=== PATIENT | male | born 1970 | race African-American/Black ===

== ENCOUNTER 2017-05-08 05:07 | Emergency (ER) | payer OTHER ==
[~2017-05-08] VITALS: Ht 185.4 cm; Wt 150.0 kg
[2017-05-08] MEDS ORDERED: ONDANSETRON 4MG ODT PO ONE (08:30)
[2017-05-08] MEDS ORDERED: TRAMADOL 50MG TABLET PO ONE (08:30)
[2017-05-08] MEDS ORDERED: FAMOTIDINE 20MG TABLET PO ONE (08:30)
[2017-05-08 08:38] VITALS: BP 143/95
== END 2017-05-08 08:49 | disposition home or self-care (01) ==
LOC: ER 05:36
DX: T62.91XA Toxic effect of unspecified noxious substance eaten as food, accidental (unintentional), initial encounter (principal); E66.9 Obesity, unspecified; F17.210 Nicotine dependence, cigarettes, uncomplicated; Z68.41 Body mass index [BMI] 40.0-44.9, adult; Z88.0 Allergy status to penicillin; Y92.018 Other place in single-family (private) house as the place of occurrence of the external cause
CPT/HCPCS: 99284; Q0162